=== PATIENT | male | born 2005 | race Hispanic/Latino ===

== ENCOUNTER 2025-01-01 16:41 | Emergency (ER) | payer SELFPAY ==
[2025-01-01] VITALS (13 sets, daily range): BP systolic 134–162; BP diastolic 68–88; PULSE 74–101; RESP 14–20; TEMP 36.7–37.3; O2SAT 97–100
--- NOTE | ~2025-01-01 | US_ITS ---
LIMITED ABDOMINAL ULTRASOUND INDICATION:pain/vomiting COMPARISON: None. FINDINGS: Liver: Liver is echogenic. No discrete mass seen. Common bile duct: Normal in size. Gallbladder: The gallbladder wall is normal in thickness. No stones or sludge were seen. Lemus's sign: Negative Right kidney:There is no hydronephrosis. Right kidney is unremarkable. IMPRESSION: No evidence for acute cholecystitis or cholelithiasis. No biliary ductal dilatation is noted. Hepatic steatosis. Reviewed, dictated and finalized at location S.
--- NOTE | ~2025-01-01 | XR_ITS ---
EXAMINATION: XR chest 2V, 01/01/2025 17:10 CDT HISTORY: palpitations COMPARISON: No comparisons available. Technique: 2 views obtained. Findings: The lungs are clear, no effusion. No pneumothorax. Heart is normal size. Mediastinal and hilar contours are within normal limits. Bony thorax no acute abnormality. Impression: No acute cardiopulmonary abnormality. Reviewed, dictated and finalized at location P. Impression: No acute cardiopulmonary abnormality.
--- NOTE | 2025-01-01 16:47 | ECG_ITS ---
Test Date: 2025-01-01 17:22:23 Measurements Intervals [place] Rate: 84 P: 26 LA: 175 QRS: -58 QRSD: 107 T: -6 QT: 362 QTc: 428 Interpretive Statements SINUS RHYTHM LEFT AXIS DEVIATION DELAYED PRECORDIAL R/S TRANSITION ST ELEVATION IN DIFFUSE LEADS CONSISTENT WITH INJURY, PERICARDITIS, OR EARLY REPOLARIZATION BASELINE ARTIFACT- I, II, III, AVR, AVL, AVF ABNORMAL ECG No previous ECG available for comparison Electronically Signed On 01-01-2025 19:41:45 CDT by Valerio Elmore D.O.
--- NOTE | 2025-01-01 17:31 | ED_ITS ---
HPI - General Adult General Chief complaint: Chest Pain <Ten Head MD - Last Filed: 01/01/25 17:32> Stated complaint: palpitations, chest pain <Ten Head MD - Last Filed: 01/01/25 17:32> Time Seen by Provider: 01/01/25 19:05 <Ten Head MD - Last Filed: 01/01/25 17:32> History of Present Illness HPI narrative: Focused HPI: Patient is a 19-year-old male who presents ER with right- sided chest pain as well as abdominal pain. Ongoing for 3 months but had sudden onset increasing pain just prior to arrival while doing some heavy lifting. He developed pain and diaphoresis and started having vomiting. He reports sometimes the pain wraps around to his back and sometimes is worse with eating. No history of heart disease. He has not been evaluated for this previously. GENERAL: Well-appearing, well-nourished, and in no acute distress. HEAD: Normocephalic, atraumatic. CHEST: Clear to auscultation. No respiratory distress. Abdomen: Soft, nontender, nondistended HEART: Regular rate and rhythm. NEURO: Alert and oriented x3. Patient screened in triage and initial orders placed. Additional care and disposition to be based upon diagnostic testing and treatment. <Ten Head MD - Last Filed: 01/01/25 17:32> MD complaint: Agree with the HPI above <Luis Lee MD - Last Filed: 01/02/25 02:49> Related Data Allergies/adverse reactions: Allergies Allergy/AdvReac Type Severity Reaction Status Date / Time No Known Allergies Allergy Verified 01/01/25 19:02 <Ten Head MD - Last Filed: 01/01/25 17:32> Review of Systems 2 Review of Systems: As reviewed above in HPI <Luis Lee MD - Last Filed: 01/02/25 02:49> Exam 2 Narrative: GENERAL: [Well-appearing, well-nourished, and in no acute distress.] HEAD: [Normocephalic, atraumatic.] EYES: [PERRLA and EOMI.] ENT: Nares clear, no rhinorrhea or epistaxis. Mucous membranes moist. NECK: Supple. CHEST: [Clear to auscultation. No respiratory distress.] HEART: [Regular rate and rhythm]. No murmur heard. [Normal peripheral pulses.] ABDOMEN: [Soft, nondistended], [nontender], [No rigidity or guarding] EXTREMITIES: Normal range of motion. [No edema.] SKIN: Warm, dry, no rash. NEURO: [No focal deficits]. Alert and oriented [x3.] PSYCH: [Normal mood and affect.] <Luis Lee MD - Last Filed: 01/02/25 02:49> Course Vital Signs Vital signs: Vital Signs Temperature 36.8 C 01/01/25 17:45 Pulse Rate 74 01/01/25 17:45 Respiratory Rate 20 01/01/25 17:45 Blood Pressure 149/78 H 01/01/25 17:45 Pulse Oximetry 100 01/01/25 17:45 Oxygen Delivery Room Air 01/01/25 17:45 Temperature 36.7 C 01/01/25 22:22 Pulse Rate 95 01/01/25 22:22 Respiratory Rate 14 01/01/25 22:22 Blood Pressure 134/88 01/01/25 22:22 Pulse Oximetry 98 01/01/25 22:22 Oxygen Delivery Room Air 01/01/25 19:11 <Ten Head MD - Last Filed: 01/01/25 17:32> Vital Signs Temperature 36.8 C 01/01/25 17:45 Pulse Rate 74 01/01/25 17:45 Respiratory Rate 20 01/01/25 17:45 Blood Pressure 149/78 H 01/01/25 17:45 Pulse Oximetry 100 01/01/25 17:45 Oxygen Delivery Room Air 01/01/25 17:45 Temperature 36.7 C 01/01/25 22:22 Pulse Rate 95 01/01/25 22:22 Respiratory Rate 14 01/01/25 22:22 Blood Pressure 134/88 01/01/25 22:22 Pulse Oximetry 98 01/01/25 22:22 Oxygen Delivery Room Air 01/01/25 19:11 <Luis Lee MD - Last Filed: 01/02/25 02:49> Medical Decision Making MDM Narrative Medical decision making narrative: Patient is a 19-year-old male who presents ER with right-sided chest pain as well as abdominal pain. Ongoing for 3 months but had sudden onset increasing pain just prior to arrival while doing some heavy lifting. He developed pain and diaphoresis and started having vomiting. He reports sometimes the pain wraps around to his back and sometimes is worse with eating. No history of heart disease. He has not been evaluated for this previously. Patient is not any acute distress on my evaluation. He is primarily Nepali-speaking so [employer] services were used. Patient is hemodynamically stable and comfortable appearing but did receive morphine prior to my assessment in triage. He has a soft nontender nondistended abdomen. No pitting edema or calf asymmetry. Strong symmetric pulses throughout. Differential includes musculoskeletal abdominal and chest pain, kidney stone, gallstone, less likely ACS, pulmonary disease or thromboembolic disorder. EKG does have some abnormal potential [id number] pattern per he has no risk factors for thromboembolic disease and otherwise meets pulmonary embolism rule out criteria but will add on a D- dimer with this abnormal EKG. Troponin added on as well. Patient placed on case monitor and re-evaluated afterwards. Laboratory studies show a slight leukocytosis of 11.9. No significant anemia normal platelet count. Coagulation panel normal. D-dimer negative. Electrolytes normal. Normal kidney function. Normal glucose. Unremarkable LFTs. Negative troponin. Negative lipase. Right upper quadrant ultrasound shows no cholecystitis or gallstones. No biliary dilation. Hepatic steatosis is noted. Chest x-ray shows no acute process. EKG shows no ST segment elevations, depressions. No interval change between delta EKGs. Vital signs stable. Patient has no acute urgent or emergent findings and can be safely discharged with PCP follow-up. Given prescription for Pepcid and Zofran as needed. <Luis Lee MD - Last Filed: 01/02/25 02:49> Medical Records Medical records reviewed: Yes I reviewed the external patient's medical records. <Luis Lee MD - Last Filed: 01/02/25 02:49> Vital Signs Vital Signs: Vital Signs Temperature 36.8 C 01/01/25 17:45 Pulse Rate 74 01/01/25 17:45 Respiratory Rate 20 01/01/25 17:45 Blood Pressure 149/78 H 01/01/25 17:45 Pulse Oximetry 100 01/01/25 17:45 Oxygen Delivery Room Air 01/01/25 17:45 Temperature 36.7 C 01/01/25 22:22 Pulse Rate 95 01/01/25 22:22 Respiratory Rate 14 01/01/25 22:22 Blood Pressure 134/88 01/01/25 22:22 Pulse Oximetry 98 01/01/25 22:22 Oxygen Delivery Room Air 01/01/25 19:11 <Ten Head MD - Last Filed: 01/01/25 17:32> Vital Signs Temperature 36.8 C 01/01/25 17:45 Pulse Rate 74 01/01/25 17:45 Respiratory Rate 20 01/01/25 17:45 Blood Pressure 149/78 H 01/01/25 17:45 Pulse Oximetry 100 01/01/25 17:45 Oxygen Delivery Room Air 01/01/25 17:45 Temperature 36.7 C 01/01/25 22:22 Pulse Rate 95 01/01/25 22:22 Respiratory Rate 14 01/01/25 22:22 Blood Pressure 134/88 01/01/25 22:22 Pulse Oximetry 98 01/01/25 22:22 Oxygen Delivery Room Air 01/01/25 19:11 <Luis Lee MD - Last Filed: 01/02/25 02:49> Lab Data Lab results reviewed: Yes I reviewed the patient's lab results. <Luis Lee MD - Last Filed: 01/02/25 02:49> Result diagrams: 01/01/25 19:26 01/01/25 19:26 <Ten Head MD - Last Filed: 01/01/25 17:32> Labs: Lab Results 01/01/25 01/01/25 Range/Units 19:26 19:26 WBC 11.9 H (4.5-10.0) K/mm3 RBC 4.59 L (4.6-6.20) M/mm3 Hgb 13.9 L (14.0-18.0) g/dL Hct 40.7 L (42.0-52.0) % MCV 88.7 (80-100) fl MCH 30.3 (26-34) pg MCHC 34.2 (32-36) g/dl RDW 13.1 (11.5-14.5) % Plt Count 251 (150-375) k/mm3 MPV 11.0 H (7.4-10.4) fl Immature Gran % (Auto) 0.6 H (0-0.5) % Neut % (Auto) 84.5 H (45.5-73.1) % Lymph % (Auto) 5.7 L (18.3-44.2) % [place] % (Auto) 6.4 (2.6-8.5) % Eos % (Auto) 2.0 (0-4.4) % Baso % (Auto) 0.8 (0.2-1.2) % Lymph # (Auto) 0.68 L (0.9-3.2) K/mm3 [place] # (Auto) 0.8 H (0.1-0.6) K/mm3 Eos # (Auto) 0.2 (0-0.3) K/mm3 Baso # (Auto) 0.1 (0.0-0.1) K/mm3 Abs Immat Gran (auto) 0.07 H (0.00-0.031) K/mm3 Absolute Neuts (auto) 10.0 H (1.3-6.7) K/mm3 Absolute Nucleated RBC 0.000 (0.0-0.012) K/mm3 Nucleated RBC % 0.0 (0.0-0.2) % PT 13.6 (11.1-14.7) Seconds INR 1.0 APTT 22.8 (22.3-36.8) Seconds D-Dimer 0.31 Cancelled (<0.48) ug/mL Sodium 139 (137-145) mmol/L Potassium 4.1 (3.4-5.0) mmol/L Chloride 104 (98-107) mmol/L Carbon Dioxide 24 (22-30) mmol/L Anion Gap 11 (4-12) mmol/L BUN 8 L (9-20) mg/dL Creatinine 0.83 (0.7-1.3) mg/dL Estim Creat Clear Calc 130 ml/min Estimated GFR > 60 (59 - ) Glucose 102 (65-110) mg/dL Calcium 9.3 (8.4-10.2) mg/dL Total Bilirubin 0.5 (0.2-1.3) mg/dL AST 49 (17-59) U/L ALT 67 H (6-50) U/L Alkaline Phosphatase 83 (38-126) U/L Troponin I < 0.012 (0.000-0.034) ng/mL Total Protein 8.0 (6.3-8.2) g/dL Albumin 4.9 (3.5-5.1) g/dL Lipase 146 (23-300) U/L <Ten Head MD - Last Filed: 01/01/25 17:32> Lab Results 01/01/25 01/01/25 Range/Units 19:26 19:26 WBC 11.9 H (4.5-10.0) K/mm3 RBC 4.59 L (4.6-6.20) M/mm3 Hgb 13.9 L (14.0-18.0) g/dL Hct 40.7 L (42.0-52.0) % MCV 88.7 (80-100) fl MCH 30.3 (26-34) pg MCHC 34.2 (32-36) g/dl RDW 13.1 (11.5-14.5) % Plt Count 251 (150-375) k/mm3 MPV 11.0 H (7.4-10.4) fl Immature Gran % (Auto) 0.6 H (0-0.5) % Neut % (Auto) 84.5 H (45.5-73.1) % Lymph % (Auto) 5.7 L (18.3-44.2) % [place] % (Auto) 6.4 (2.6-8.5) % Eos % (Auto) 2.0 (0-4.4) % Baso % (Auto) 0.8 (0.2-1.2) % Lymph # (Auto) 0.68 L (0.9-3.2) K/mm3 [place] # (Auto) 0.8 H (0.1-0.6) K/mm3 Eos # (Auto) 0.2 (0-0.3) K/mm3 Baso # (Auto) 0.1 (0.0-0.1) K/mm3 Abs Immat Gran (auto) 0.07 H (0.00-0.031) K/mm3 Absolute Neuts (auto) 10.0 H (1.3-6.7) K/mm3 Absolute Nucleated RBC 0.000 (0.0-0.012) K/mm3 Nucleated RBC % 0.0 (0.0-0.2) % PT 13.6 (11.1-14.7) Seconds INR 1.0 APTT 22.8 (22.3-36.8) Seconds D-Dimer 0.31 Cancelled (<0.48) ug/mL Sodium 139 (137-145) mmol/L Potassium 4.1 (3.4-5.0) mmol/L Chloride 104 (98-107) mmol/L Carbon Dioxide 24 (22-30) mmol/L Anion Gap 11 (4-12) mmol/L BUN 8 L (9-20) mg/dL Creatinine 0.83 (0.7-1.3) mg/dL Estim Creat Clear Calc 130 ml/min Estimated GFR > 60 (59 - ) Glucose 102 (65-110) mg/dL Calcium 9.3 (8.4-10.2) mg/dL Total Bilirubin 0.5 (0.2-1.3) mg/dL AST 49 (17-59) U/L ALT 67 H (6-50) U/L Alkaline Phosphatase 83 (38-126) U/L Troponin I < 0.012 (0.000-0.034) ng/mL Total Protein 8.0 (6.3-8.2) g/dL Albumin 4.9 (3.5-5.1) g/dL Lipase 146 (23-300) U/L <Luis Lee MD - Last Filed: 01/02/25 02:49> Imaging Data Attestation: I personally reviewed and interpreted this imaging study as follows: < Luis Lee MD - Last Filed: 01/02/25 02:49> My impression: Impressions Chest X-Ray 01/01/25 17:17 Impression: No acute cardiopulmonary abnormality. Upper Quadrant Ultrasound 01/01/25 18:22 IMPRESSION: No evidence for acute cholecystitis or cholelithiasis. No biliary ductal dilatation is noted. Hepatic steatosis. <Luis Lee MD - Last Filed: 01/02/25 02:49> Discharge Plan Discharge Clinical Impression: Chest pain <Ten Head MD - Last Filed: 01/01/25 17:32> Patient Disposition: Home <Ten Head MD - Last Filed: 01/01/25 17:32> Condition: Stable <Ten Head MD - Last Filed: 01/01/25 17:32> Instructions: Antibiotic Form, Chest Pain (ED) <Ten Head MD - Last Filed: 01/01/25 17:32> Additional Instructions: Your laboratory studies imaging and cardiac workup were reassuring here without any acute evidence of urgent or emergent concerns. No acute findings today. Follow-up with your regular primary care provider. We have prescribed you some Pepcid to help take that might help her symptoms. <Ten Head MD - Last Filed: 01/01/25 17:32> Patient Language: Nepali <Ten Head MD - Last Filed: 01/01/25 17:32> Prescriptions: New famotidine [Pepcid] 20 mg tablet 20 mg PO BID Qty: 20 0RF ondansetron 4 mg tablet,disintegrating 4 mg PO Q8H PRN (Reason: nausea and vomiting) Qty: 10 0RF <Ten Head MD - Last Filed: 01/01/25 17:32> Follow-up/Referrals: PHYSICIAN,RUSSIAN LANGUAGE PROFESSOR [Non-Staff, Internal Medicine] <Ten Head MD - Last Filed: 01/01/25 17:32> Time of Disposition: 21:38 <Ten Head MD - Last Filed: 01/01/25 17:32> 21:38 <Luis Lee MD - Last Filed: 01/02/25 02:49>
[2025-01-01] MEDS: MORPHINE SULFATE (*CRX) 4 MG/ML INJ IV PUSH (19:16)
[2025-01-01] MEDS: ONDANSETRON INJ 4 MG/2 ML VIAL IV PUSH (19:16)
[2025-01-01 19:36] LABS: Hematocrit 40.7 % (42.0-52.0); Hemoglobin 13.9 g/dL (14.0-18.0); Immature Granulocyte Percent A 0.6 % (0-0.5); Lymphocytes Absolute Auto 0.68 K/mm3 (0.9-3.2); Mean Corpuscular HGB Conc 34.2 g/dl (32-36); Mean Corpuscular Hemoglobin 30.3 pg (26-34); Mean Corpuscular Volume 88.7 fl (80-100); Nucleated Red Blood Cells Absolute Auto 0.000 K/mm3 (0.0-0.012); Nucleated Red Blood Cells Perc 0.0 % (0.0-0.2); Platelet Count Result 251 k/mm3 (150-375); Red Blood Count 4.59 M/mm3 (4.6-6.20); White Blood Count 11.9 K/mm3 (4.5-10.0)
[2025-01-01 19:51] LABS: Alanine Aminotransferase 67 U/L (6-50); Albumin Level 4.9 g/dL (3.5-5.1); Alkaline Phosphatase 83 U/L (38-126); Anion Gap 11 mmol/L (4-12); Aspartate Amino Transferase 49 U/L (17-59); Bilirubin,Total 0.5 mg/dL (0.2-1.3); Blood Urea Nitrogen 8 mg/dL (9-20); Calcium 9.3 mg/dL (8.4-10.2); Carbon Dioxide 24 mmol/L (22-30); Chloride 104 mmol/L (98-107); Estimated CRCL calculation 130 ml/min; Estimated Glomerular Filt Rate > 60; Glucose 102 mg/dL (65-110); Lipase 146 U/L (23-300); Potassium 4.1 mmol/L (3.4-5.0); Sodium 139 mmol/L (137-145); Total Protein 8.0 g/dL (6.3-8.2)
[2025-01-01 19:52] LABS: INR 1.0; Prothrombin Time 13.6 Seconds (11.1-14.7)
[2025-01-01 19:53] LABS: Partial Thromboplastin Time 22.8 Seconds (22.3-36.8)
--- NOTE | 2025-01-01 19:54 | ECG_ITS ---
Test Date: 2025-01-01 19:58:19 Measurements Intervals [place] Rate: 99 P: 38 AR: 188 QRS: -64 QRSD: 108 T: 9 QT: 350 QTc: 451 Interpretive Statements SINUS RHYTHM LEFT AXIS DEVIATION DELAYED PRECORDIAL R/S TRANSITION ST ELEVATION IN DIFFUSE LEADS CONSISTENT WITH INJURY, PERICARDITIS OR EARLY REPOLARIZATION ABNORMAL ECG Compared to ECG 01/01/2025 17:22:23 NO SIGNIFICANT CHANGE Electronically Signed On 01-02-2025 06:12:36 CDT by Valerio Elmore D.O.
[2025-01-01 20:02] LABS: Troponin I < 0.012 ng/mL (0.000-0.034)
[2025-01-01] MEDS: LACTATED RINGERS 1,000 ML 999 ML IV CONT (20:55)
[2025-01-01] MEDS: KETOROLAC 15 MG/ML VIAL (*BKC) IV PUSH (22:13)
== END 2025-01-01 22:24 | disposition home or self-care (01) ==
PROVIDERS: Student in an Organized Health Care Education/Training Program; Emergency Provider Student in an Organized Health Care Education/Training Program; PCP Family Medicine
DX: R07.9 Chest pain, unspecified (principal); R94.31 Abnormal electrocardiogram [ECG] [EKG]
CPT/HCPCS: 36415; 71046; 76705; 80053; 83690; 84484; 85025; 85380; 85610; 85730; 93005; 96361; 96374; 96375; 99284; J1885; J2270; J2405; J7120